=== PATIENT | female | born 1970 | race Caucasian/White ===

== ENCOUNTER 2021-08-26 15:19 | Emergency (ER) | payer BC, OTHER ==
[~2021-08-26] VITALS: Ht 154.9 cm; Wt 49.4 kg
[2021-08-26] MEDS ORDERED: MELOXICAM7.5 MG PO (16:30)
== END 2021-08-26 17:08 | disposition home or self-care (01) ==
LOC: FSED 16:12
DX: S92.322A Displaced fracture of second metatarsal bone, left foot, initial encounter for closed fracture (principal); W20.8XXA Other cause of strike by thrown, projected or falling object, initial encounter; Y92.89 Other specified places as the place of occurrence of the external cause; Z98.84 Bariatric surgery status; F17.210 Nicotine dependence, cigarettes, uncomplicated
CPT/HCPCS: 99283

== ENCOUNTER 2021-12-04 11:43 | Emergency (ER) | payer BC, OTHER ==
[~2021-12-04] VITALS: Ht 154.9 cm; Wt 49.0 kg
[~2021-12-04 11:43] MED LIST: MELOXICAM7.5 MG PO
== END 2021-12-04 14:58 | disposition home or self-care (01) ==
LOC: FSED 11:49
DX: S90.32XA Contusion of left foot, initial encounter (principal); W10.8XXA Fall (on) (from) other stairs and steps, initial encounter; Y93.01 Activity, walking, marching and hiking; Y92.89 Other specified places as the place of occurrence of the external cause; Z87.11 Personal history of peptic ulcer disease; Z98.84 Bariatric surgery status
CPT/HCPCS: 99283

== ENCOUNTER 2022-06-16 13:16 | Emergency (ER) | payer OTHER ==
[~2022-06-16] VITALS: Ht 154.9 cm; Wt 53.1 kg
[2022-06-16] MEDS ORDERED: ONDANSETRON HCL 4 MG ORAL DISINTEGRATING TAB ONE (13:57)
[2022-06-16] MEDS ORDERED: HYDROCODONE/APAP 5MG-325MG TAB ONE (13:57)
[2022-06-16] MEDS ORDERED: KETOROLAC TROMETHAMINE 30 MG/ML VIAL IM ONE (14:00)
[2022-06-16] MEDS ORDERED: ONDANSETRON HCL 4 MG ORAL DISINTEGRATING TAB PO ONE (14:30)
[2022-06-16] MEDS ORDERED: HYDROCODONE/APAP 5MG-325MG TAB PO ONE (14:30)
== END 2022-06-16 14:02 | disposition left against medical advice (07) ==
LOC: FSED 13:47
DX: M54.41 Lumbago with sciatica, right side (principal); W18.49XA Other slipping, tripping and stumbling without falling, initial encounter; Y92.89 Other specified places as the place of occurrence of the external cause; Z98.84 Bariatric surgery status
CPT/HCPCS: Q0162